=== PATIENT | female | born 1990 | race American Indian/Alaskan Native ===

== ENCOUNTER 2019-07-29 04:21 | Inpatient (IN) | payer OTHER ==
[2019-07-29] MEDS ORDERED: WITCH HAZEL/ GLYCERIN PAD TP PRN (04:49)
[2019-07-29] MEDS ORDERED: LANOLIN/ZINC/DIMETHICONE (LANSINOH) 7 GM TP PRN (04:49)
[2019-07-29] MEDS ORDERED: MAGNESIUM HYDROXIDE (MOM) ORAL LIQD UDC PO PRN (04:49)
--- NOTE | 2019-07-29 04:58 | Event Note ---
Date: 07/29/19 Patient came in by EMS; delivered baby and placenta en route. Patient denies pain or heavy bleeding at this time. Patient is well appearing, alert, oriented, NAD. Abdomen is soft, nontender. Fundus is firm and midline and is below the umbilicus. No vulvar/perineal lacerations noted. Vaginal sweep performed and nothing noted in vagina. Bleeding is minimal. Patient is receiving IV Pitocin.
[2019-07-29] MEDS ORDERED: OXYTOCIN 20 UNIT/1000ML DRIP 20 UNITS/1,000 ML BAG IV SCH (05:00)
[2019-07-29 05:55] LABS: Hematocrit 35.4 % (30.3-42.9); Hemoglobin 12.2 gm/dl (10.1-14.3); Mean Corpuscular HGB Conc 35 % (30-34); Mean Corpuscular Volume 90 fl (79-97); Platelet Count 202 K/mm3 (140-440); Red Blood Count 3.93 M/mm3 (3.65-5.03); Red Cell Distribution Width 13.5 % (13.2-15.2)
[2019-07-29] MEDS: IBUPROFEN 600 MG TAB PO SCH ×4 (06:10→22:35)
[2019-07-29 06:16] LABS: Alanine Aminotransferase 13 units/L (7-56); Albumin 3.7 g/dL (3.9-5); BUN/Creatinine Ratio 18; Blood Urea Nitrogen 7 mg/dL (7-17); Calcium 9.5 mg/dL (8.4-10.2); Hemolysis Index 3
[2019-07-29 06:23] LABS: Hepatitis C Virus Antibody Non-Reactive (NonReactive)
--- NOTE | 2019-07-29 08:53 | History and Physical Report ---
History of Present Illness Date of examination: 07/29/19 Date of admission: 07/29/19 04:21 Chief complaint: precipitous delivery of fetus and placenta en route to hospital in ambulance. PNC at [facility] Past History Past Surgical History: no surgical history Family/Genetic History: none Social history: no significant social history - Obstetrical History : 4 Medications and Allergies Allergies Allergy/AdvReac Type Severity Reaction Status Date / Time Fish Containing Products Allergy Unknown Verified 07/29/19 04:56 tree nut Allergy Unknown Verified 07/29/19 04:56 Active Meds: Active Medications Acetaminophen/Hydrocodone Bitart (Alexander 5/325) 2 each PO Q6H PRN PRN Reason: Pain, Moderate (4-6) Docusate Sodium (Colace) 100 mg PO BID NOEMI Oxytocin/Sodium Chloride (Pitocin/Ns 20 Unit/1000ml Drip) 20 units in 1,000 mls @ 125 mls/hr IV DIRECT NOEMI Last Admin: 07/29/19 04:30 Dose: 125 mls/hr Documented by: Ibuprofen (Ibuprofen) 600 mg PO Q6HR [facility] Last Admin: 07/29/19 06:10 Dose: Not Given Documented by: Magnesium Hydroxide (Milk Of Magnesia) 30 ml PO HS PRN PRN Reason: Constipation Multi-Ingredient Ointment (Lansinoh) 1 applic TP PRN PRN PRN Reason: Sore Nipples Sodium Chloride (Sodium Chloride Flush Syringe 10 Ml) 10 ml IV PRN PRN PRN Reason: LINE FLUSH Witch Maritza/Glycerin (Tucks Pad) 1 each TP PRN PRN PRN Reason: Hemorrhoid/cleansing/soothing Review of Systems All systems: negative - Vital Signs Vital signs: Vital Signs Pulse BP 45 L 123/58 07/29/19 04:49 07/29/19 04:49 Temp Pulse Resp BP Pulse Ox 97.6 F 54 L 18 113/59 97 07/29/19 06:39 07/29/19 06:39 07/29/19 06:39 07/29/19 06:39 07/29/19 06:39 - Physical Exam Breasts: Positive: deferred Cardiovascular: Regular rate Lungs: Positive: Clear to auscultation Abdomen: Positive: normal appearance Genitourinary (Female): Positive: normal external genitalia Vagina: Positive: normal moisture Uterus: Positive: enlarged (FH at 2cm above umbilucus) Extremities: Positive: normal Deep Tendon Reflex Grade: Normal +2 Results Result Diagrams: 07/29/19 05:16 07/29/19 05:16 Abnormal lab results 07/29/19 07/29/19 Range/Units 05:16 05:16 MCHC 35 H (30-34) % Sodium 135 L (137-145) mmol/L Carbon Dioxide 17 L (22-30) mmol/L Creatinine 0.4 L (0.7-1.2) mg/dL Glucose 121 H (65-100) mg/dL Albumin 3.7 L (3.9-5) g/dL All other labs normal. Assessment and Plan en route to hospital Plan: routine PP orders obtain PNR MAternal status stable Christa NELSON
[2019-07-29] MEDS: DOCUSATE SODIUM 100 MG CAP PO SCH ×2 (11:14→22:35)
[2019-07-29] MEDS: HYDROcodone/ACETAMINOPHEN 5-325 MG TAB PO PRN (17:57)
[2019-07-29 18:57] LABS: Hematocrit 36.3 % (30.3-42.9); Hemoglobin 12.4 gm/dl (10.1-14.3)
[2019-07-30] MEDS: HYDROcodone/ACETAMINOPHEN 5-325 MG TAB PO PRN ×2 (00:09→09:46)
[2019-07-30 05:21] LABS: Amphetamine Screen,Urine PRESUMPTIVE NEGATIVE; Benzodiazepines Screen,Urine PRESUMPTIVE NEGATIVE; Cannabinoid Screen,Urine PRESUMPTIVE NEGATIVE; Cocaine Screen,Urine PRESUMPTIVE NEGATIVE; Methadone Screen,Urine PRESUMPTIVE NEGATIVE; Opiate Screen,Urine PRESUMPTIVE NEGATIVE
[2019-07-30] MEDS ORDERED: TETANUS,DIPH,PERTUSS(ACELL) VACCINE 0.5 ML SYRINGE IM ONE (06:00)
[2019-07-30] MEDS: IBUPROFEN 600 MG TAB PO SCH ×2 (06:37→12:15)
[2019-07-30] MEDS: DOCUSATE SODIUM 100 MG CAP PO SCH (09:46)
[2019-07-30] MEDS ORDERED: medroxyPROGESTERone ACETATE 150 MG/ML SYRINGE IM ONE (10:53)
--- NOTE | 2019-07-30 10:53 | Progress Note ---
Assessment and Plan A: PP Day #1 Stable P: Follow Routine Orders Depo Provera 150mg IM x1 dose prior to discharge D/C home today per patient request RTO in 6 Weeks Subjective - Subjective Date of service: 07/30/19 Patient reports: appetite normal, voiding normally, flatus, ambulating normally [place]: doing well Objective - Vital Signs Latest vital signs: Vital Signs Temp Pulse Resp BP Pulse Ox 07/30/19 07:53 97.6 F 76 20 109/68 97 07/30/19 07:37 18 07/30/19 06:37 18 07/30/19 01:09 18 07/30/19 00:11 97.8 F 66 20 100/62 98 07/30/19 00:09 18 07/29/19 23:35 18 07/29/19 22:35 18 07/29/19 18:57 18 07/29/19 17:14 97.8 F 75 18 98/61 100 07/29/19 13:52 97.7 F 62 18 105/42 97 Intake and Output 07/29/19 07/30/19 07/30/19 22:59 06:59 14:59 Intake Total 240 360 240 Balance 240 360 240 Intake: Oral 240 Intake, Free Water 240 360 Other: Total, Intake Amount 240 # Voids Void 1 1 1 - Exam Breasts: Present: normal Cardiovascular: Present: Regular rate Lungs: Present: Clear to auscultation, Normal air movement Abdomen: Present: normal appearance, soft, normal bowel sounds Uterus: Present: normal, firm, fundal height below umbilicus Extremities: Present: normal
--- NOTE | 2019-07-30 10:55 | Discharge Summary ---
Providers - Providers Date of Admission: 07/29/19 04:21 Date of discharge: 07/30/19 Attending physician: MARYLOU WOLFF MD Primary care physician: MARYLOU WOLFF MD Hospitalization Reason for admission: other (EMS Delivery) Delivery: Episiotomy: none Laceration: none Other procedures: none complications: none Discharge diagnosis: IUP at term delivered [place] baby: female Condition at discharge: Good Disposition: DC-01 TO HOME OR SELFCARE Plan - Provider Discharge Summary Activity: routine, no sex for 6 weeks, no heavy lifting 4 weeks, no strenuous exercise Diet: routine Instructions: routine Additional instructions: [] Smoking cessation referral if applicable(refer to patient education folder for contact #) [] Refer to [facility] Booklet Call your doctor immediately for: * Fever > 100.5 * Heavy vaginal bleeding ( >1 pad per hour) * Severe persistent headache * Shortness of breath * Reddened, hot, painful area to leg or breast * Drainage or odor from incision. * Keep incision clean and dry at all times and follow doctor's instructions regarding bathing/showering - Follow up plan Follow up: MARYLOU WOLFF MD [Primary Care Provider] - 7 Days
[2019-07-30 17:20] VITALS: BP 102/57
== END 2019-07-30 16:45 | disposition home or self-care (01) | DRG 776 ==
LOC: LD 04:21 → OB 06:22
PROVIDERS: ADMIT Obstetrics & Gynecology; ATTEND Obstetrics & Gynecology
PROC: 3E0234Z Introduction of Serum, Toxoid and Vaccine into Muscle, Percutaneous Approach (ICD-10-PCS; principal; 2019-07-30)
PROC: 3E0334Z Introduction of Serum, Toxoid and Vaccine into Peripheral Vein, Percutaneous Approach (ICD-10-PCS; 2019-07-30)
DX: Z39.0 Encounter for care and examination of mother immediately after delivery (principal)
CPT/HCPCS: 36415; 80053; 80307; 85014; 85018; 85027; 85461; 86592; 86706; 86762; 86803; 86850; 86870; 86900; 86901; 87806; 90471; 90715; 93005; 93010; G0378; A6250; J2790